=== PATIENT | female | born 1975 | race Two or more races ===

== ENCOUNTER 2022-08-13 14:00 | Emergency (ER) | payer OTHER ==
[~2022-08-13] VITALS: Ht 170.2 cm; Wt 76.8 kg
[2022-08-13 14:54] VITALS: BP 118/88
[2022-08-13] MEDS ORDERED: TETANUS-DIPTH-ACEL PERTUSSIS 0.5ML SYR Tdap IM ONE (15:15)
[2022-08-13] MEDS ORDERED: MAX35OO TOP (15:29)
[2022-08-13] MEDS ORDERED: CEPH250C PO (15:29)
[2022-08-13] MEDS ORDERED: NEOMYCIN-BACITRACIN-POLYM UNITDOSE PKG TOP OINT TOP ONE (15:30)
== END 2022-08-13 15:45 | disposition home or self-care (01) ==
LOC: ER 14:00
DX: S91.332A Puncture wound without foreign body, left foot, initial encounter (principal); Z88.6 Allergy status to analgesic agent; W22.8XXA Striking against or struck by other objects, initial encounter; Y93.01 Activity, walking, marching and hiking; Y92.098 Other place in other non-institutional residence as the place of occurrence of the external cause; Y99.8 Other external cause status
CPT/HCPCS: 90471; 90715